=== PATIENT | male | born 1965 | race Caucasian/White ===

== ENCOUNTER 2021-12-08 10:48 | Outpatient (CLI) | payer OTHER, SELFPAY ==
--- NOTE | 2021-12-08 11:02 | USCV_ITS ---
Michael Cowan Age: 56 Gender: M : 1965 Exam Date: 12/08/2021 11:12 Ordering Phys: Luisito Navarro Technologist: MARS Exam Location: [facility]_ Indication: RLE PAIN AND SWELLING WITH PALPABLE LUMP HISTORY: Lower extremity swelling. Lower extremity pain. PROCEDURES: Venous duplex imaging was performed in only the right lower extremity. The following venous structures were evaluated: common femoral vein, profunda vein, proximal portion of the greater saphenous vein, superficial femoral vein, and the popliteal vein. In addition, the posterior tibial and peroneal trunk were evaluated. Serial compression, augmentation maneuvers, and spectral Doppler flow evaluation were performed. FINDINGS: Normal 2-D Doppler and augmentation and compressibility throughout the lower extremity venous structures. Additional imaging through the proximal calf veins also reveals no thrombus. Limited evaluation of the greater saphenous vein is patent with no thrombus. There is subcutaneous right lower extremity edema noted. Possible Lipoma seen measuring 2.1x2.5x0.9 cm at the palpable nodule site. CONCLUSIONS No DVT right lower extremity. Dr. Maeve Rodriguez DO (Electronically Signed) Final Date: 08 December 2021 12:29 S
== END 2021-12-08 10:49 | disposition home or self-care (01) ==
PROVIDERS: Visit Provider Nurse Practitioner Family
DX: M79.89 Other specified soft tissue disorders (principal); M79.661 Pain in right lower leg; R22.41 Localized swelling, mass and lump, right lower limb
CPT/HCPCS: 93971

== ENCOUNTER 2022-10-05 12:56 | Outpatient (CLI) | payer OTHER, SELFPAY ==
--- NOTE | 2022-10-05 14:15 | USCV_ITS ---
Chapo Michael Age: 57 Gender: M : 1965 Exam Date: 10/05/2022 13:37 Ordering Phys: Eb Parham MD (Andy) ([email or web address]) Technologist: CHERRIE [place] [facility] [place]: H[place]ORY: PROCEDURES: FINDINGS: The veins were found to be easily compressible with spontaneous blood flow. Non pulsatile flow pattern. Normal venous dimensions bilaterally. No significant venous reflux CONCLUSIONS No evidence of DVT in the above-mentioned identifiable veins. No significant venous reflux in the above-mentioned veins Normal venous dimensions with no evidence of any superficial vein thrombosis Dr Mackenzie Goldsmith MD FACC (Electronically Signed) Final Date: 05 October 2022 20:33 S
== END 2022-10-05 12:57 | disposition home or self-care (01) ==
PROVIDERS: PCP Nurse Practitioner Family; Visit Provider Thoracic Surgery (Cardiothoracic Vascular Surgery)
DX: M79.89 Other specified soft tissue disorders (principal)
CPT/HCPCS: 93970

== ENCOUNTER 2022-10-26 07:21 | Outpatient (CLI) | payer OTHER, SELFPAY ==
--- NOTE | 2022-10-26 08:00 | CT_ITS ---
WS: [id number] CT ANGIOGRAPHY/venography abdomen and pelvis HISTORY: right leg swelling, possible May- Thurner TECHNIQUE: CT venogram is performed during IV injection. 2 phases. Reformation images reviewed. All C T scans at [facility] use at least one of these dose optimization techniques: automated exposu re control; mA and/or kV adjustment per patient size (includes targeted exams where dose is matched t o clinical indication); or iterative reconstruction. CONTRAST: Omnipaque 350; 100 mL IV. DLP: 1176.63 mGy.cm COMPARISON: None available. Lung bases are clear. Small lymph nodes in the pericardiac fat. Normal size heart. Normal size distal esophagus. There are diffuse, too small to characterize hypodensities within the liver. These are mo st likely small cysts. No mass. Normal portal vein. Normal size spleen. Normal pancreas. No pancreati c duct dilatation. Negative gallbladder and adrenal glands. Abdominal aorta: Normal appearance of the abdominal aorta. Mesenteric arteries are well visualized. N o aneurysm. There is a very tiny amount of plaque in the bifurcation. Normal renal arteries. Normal appearance of the IVC. No thrombus identified. There is good demonstration of the LEFT iliac v ein. There is good contrast enhancement and no thrombus is identified. There is very slight arterial contact on the bifurcation of the IVC. There is a very high bifurcation of the RIGHT common iliac art luis. The LEFT internal iliac artery is causing mild contact at the bifurcation of the IVC/proximal LE FT iliac vein. No thrombus is identified. 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 No associated mass. Only few very small lymph nodes are identi fied. There is fecalization in the distal small bowel along with foreign body like material. Adjacent to the foreign body like material is fecalization of the small bowel which is typically seen with a longstanding chronic obstruction. High density foreign body measures 2.4 x 0.6 cm. At this time there is no obvious small bowel obstruction. No evidence for appendicitis. Additional increased fecal cont ent near the cecum making the cecum difficult to evaluate. Mild bladder wall thickening. Minimal prostate gland hypertrophy. No adenopathy. IMPRESSION: 1. No common iliac vein thrombosis. There is no venous or arterial obstruction. 2. Very early bifurcation of the RIGHT common iliac artery with the external iliac artery contacting but not significantly compressing the proximal LEFT common iliac vein. 3. Abnormal loop of small bowel in the pelvis. There is fecalization of the small bowel loop with ret ained foreign body material. High dense object, linear within the lumen of the small bowel with adjac ent fecalization which is often seen with longstanding obstruction. At this time there is no obstruct ion but patient should be evaluated by surgery. Depending on the foreign body this could be a risk fo r perforation. Follow-up CT imaging may be of benefit to see if this foreign body moves distally. Con supervisor fertilizer surgical evaluation. 4. Hepatic cysts.
[2022-10-26] MEDS: iohexol 350 mg/mL 500 mL Btl (per mL) IV (08:26)
== END 2022-10-26 07:22 | disposition home or self-care (01) ==
PROVIDERS: PCP Nurse Practitioner Family; Visit Provider Thoracic Surgery (Cardiothoracic Vascular Surgery)
DX: M79.89 Other specified soft tissue disorders (principal); T18.3XXA Foreign body in small intestine, initial encounter; K76.89 Other specified diseases of liver
CPT/HCPCS: 74174; Q9967

== ENCOUNTER 2022-12-20 07:27 | Day surgery (SDC) | payer OTHER, SELFPAY ==
[2022-12-20 07:40] VITALS: BP 123/84; PULSE 84; RESP 18; TEMP 36.1; O2SAT 98; BMI 29.5
[2022-12-20] MEDS: sodium chloride 0.9% 1,000 ML 30 ML IV (07:54)
--- NOTE | 2022-12-20 09:01 | ANES.PREANE2 ---
Pre-Anesthetic Assessment Height/Weight: Height 1.75 m Weight 90.718 kg Temp Pulse Resp BP Pulse Ox O2 Del Method 97 F L 84 18 123/84 98 Room Air 12/20/22 07:40 12/20/22 07:40 12/20/22 07:40 12/20/22 07:40 12/20/22 07:40 12/20/22 07:40 Preop Diagnosis: Abd pain,screening Operation Date: 12/20/22 09:00 Proposed Procedures p EGD(Not Applicable) [place] [id number] egd [id number] colon G0121 screen colon A risk R10.9,Z80.0,Z12.11(Not Applicable) - Moris Lowery DO Was Beta Gaby taken within 24 hours: N/A Was Clonidine taken within 24 hours: N/A Last intake: Intake Last Liquid Date 12/19/22 Last Liquid Time 22:00 Last Solid Date 12/18/22 Last Solid Time 22:00 Social Alcohol Exam alert, oriented x 3, clear to auscultation bilaterally and regular rate & rhythm Airway Submandibular: within normal limits Cervical ROM: within normal limits Mallampati: Class II Dentition: false History/ROS No significant history except as noted and No significant complaints Pulmonary None reported CV/HEM None reported None reported Hepatic None reported GI Gastroesophageal Reflux Disease Metabolic None reported Musc/skel None reported Neuropsych None reported Anesthetic Plan ASA status: 2 Anesthesia: Anesthesia Evaluation and MAC Risk of > 500 ml blood loss (7ml/kg in children): No Medications/Allergies Home Medications Medication Instructions Recorded Confirmed Last Taken Type aspirin 325 mg tablet 325 mg PO DAILY PRN Pain 12/19/22 12/19/22 12/06/22 History Allergies Allergy/AdvReac Type Severity Reaction Status Date / Time No Known Allergies Allergy Verified 12/19/22 08:08 Current Medications Generic Name Dose Route Start Last Admin Trade Name Freq PRN Reason Stop Dose Admin Sodium Chloride 1,000 mls @ 30 mls/hr 12/20/22 07:45 12/20/22 07:54 Sodium Chloride 0.9% IV 12/21/22 07:44 30 mls/hr .Q24H KAYKAY Administration PFSH Anesthesia Medical History (Updated 11/28/22 @ 14:22 by Moris Lowery DO) Family history of colon cancer Family History Father Cancer Brother Diabetes Sister Diabetes Denies family history of CAD (coronary artery disease) Stroke Social History Smoking and tobacco/nicotine status: current every day tobacco/nicotine user smokeless tobacco Smokeless tobacco user: chewing tobacco Alcohol intake: current Alcohol intake frequency: 0-2 Drinks per Day Substance/Drug Use: never Lives independently: Yes Household members: none Housing: House Marital status: Single Number of children: 0 Pets and animals: Yes Pets & animals: cat(s) Data Anesthesia Cardiac Studies: No Data to Display
--- NOTE | 2022-12-20 09:24 | W.PM.OPSUD ---
Surgery/Procedure H&P Update DATE OF PROCEDURE: December 20, 2022 DATE H&P PERFORMED: 11/28/22 H&P UPDATE INFORMATION: I have reviewed H&P completed within last 30 days, I have examined patient prior to procedure and No changes to prior documentation PREOP DIAGNOSIS: Abd pain,screening PLANNED PROCEDURE: Operation Date: 12/20/22 09:00 Proposed Procedures p EGD(Not Applicable) - [place] [id number] egd [id number] colon G0121 screen colon A risk R10.9,Z80.0,Z12.11(Not Applicable) - Moris Lowery DO
[2022-12-20 10:13] VITALS: BP 109/73; PULSE 68; RESP 20; TEMP 36.1; O2SAT 99
[2022-12-20 10:23] VITALS: BP 112/75; PULSE 61; RESP 16; O2SAT 97
[2022-12-20 10:31] VITALS: BP 133/98; PULSE 69; RESP 16; O2SAT 100
--- NOTE | 2022-12-20 10:37 | ANE.PACU2 ---
Inpatient post-anesthesia follow up: Airway intact: Yes Vital signs: Temperature 97.0 F Pulse Rate 69 Respiratory Rate 16 Blood Pressure 133/98 Pulse Oximetry 100 Oxygen Delivery Me thod Room Air Oxygen Flow Rate 2 Fraction of Inspir ed Oxygen Hydration adequate: Yes Nausea and vomiting: No Pain level: 1 Mental status: Baseline
== END 2022-12-20 10:49 | disposition home or self-care (01) ==
PROVIDERS: PCP Nurse Practitioner Family; Visit Provider Surgery
PROC: 0DJ08ZZ Inspection of Upper Intestinal Tract, Via Natural or Artificial Opening Endoscopic (ICD-10-PCS; CPT 43235; principal; 2022-12-20 09:00)
PROC: 0DJD8ZZ Inspection of Lower Intestinal Tract, Via Natural or Artificial Opening Endoscopic (ICD-10-PCS; CPT 45378; 2022-12-20 09:00)
DX: Z12.11 Encounter for screening for malignant neoplasm of colon (principal); R10.9 Unspecified abdominal pain; Z80.0 Family history of malignant neoplasm of digestive organs; K29.70 Gastritis, unspecified, without bleeding; B96.81 Helicobacter pylori [H. pylori] as the cause of diseases classified elsewhere; D12.2 Benign neoplasm of ascending colon; D12.5 Benign neoplasm of sigmoid colon; D12.3 Benign neoplasm of transverse colon; K21.9 Gastro-esophageal reflux disease without esophagitis; F17.290 Nicotine dependence, other tobacco product, uncomplicated
CPT/HCPCS: 43239; 45385; 88305; 88342; J2704; J7030

== ENCOUNTER 2022-12-28 13:51 | Outpatient (CLI) | payer OTHER, SELFPAY ==
[2022-12-28] MEDS: iohexol 350 mg/mL 500 mL Btl (per mL) IV (14:19)
--- NOTE | 2022-12-28 14:30 | CTR_ITS ---
PROCEDURE INFORMATION: Exam: CT Abdomen And Pelvis With Contrast Exam date and time: 12/28/2022 2:18 PM Age: 57 years old Clinical indication: Abdominal pain; Localized; Left lower quadrant (llq); Prior surgery; Surgery date: 6+ months; Surgery type: Testicle TECHNIQUE: Imaging protocol: Computed tomography of the abdomen and pelvis with contrast. Radiation optimization: All CT scans at this facility use at least one of these dose optimization techniques: automated exposure control; mA and/or kV adjustment per patient size (includes targeted exams where dose is matched to clinical indication); or iterative reconstruction. Contrast material: OMNI 350; Contrast volume: 100 ml; Contrast route: INTRAVENOUS (IV); REPORTING DATA: Count of CT and Cardiac NM exams in prior 12 months: This patient has received [address] and 0 known cardiac nuclear medicine studies in the 12 months prior to the current study. COMPARISON: CT angio abdomen pelvis [id number] 10/26/2022 8:20 AM RADIATION DOSE METRICS: Total DLP (mGy-cm): 477.82 FINDINGS: Liver: Several small cystic lesions in the liver which do not warrant further evaluation. Gallbladder and bile ducts: Normal. No calcified stones. No ductal dilation. Pancreas: Normal. No ductal dilation. Spleen: Normal. No splenomegaly. Adrenal glands: Normal. No mass. Kidneys and ureters: Simple cyst lower pole right kidney which does not warrant further evaluation. Tiny simple cyst upper pole left kidney which does not warrant further evaluation. Stomach and bowel: Once again there is an abnormal loop of small bowel in the pelvis with internal retained foreign body material but no definite obstruction. Stomach is distended with a large amount of particulate material but no definite mechanical outflow obstruction seen. Appendix: No evidence of appendicitis. Intraperitoneal space: See Lymph nodes finding. Vasculature: Unremarkable. No abdominal aortic aneurysm. Lymph nodes: Mild nonspecific enlargement mesenteric nodes seen as on the prior study. This has not increased. There is a small amount of commensurate increased attenuation of mesenteric fat this is also stable. Urinary bladder: Unremarkable as visualized. Reproductive: Unremarkable as visualized. Bones/joints: Lower lumbar degenerative changes without stenosis. Soft tissues: Unremarkable. CT/CT abdomen pelvis w con* [id number] IMPRESSION: Findings are similar to those seen on CT angio from 10/26/2022. Focally dilated small bowel with internal foreign body without gross obstruction. Minor prominence of mesenteric nodes and adjacent increased attenuation mesenteric fat, nonspecific. Large amount retained particulate material within distended stomach without definite mechanical obstruction.
== END 2022-12-28 13:52 | disposition home or self-care (01) ==
LOC: RAD 13:52
PROVIDERS: PCP Nurse Practitioner Family; Visit Provider Surgery
DX: R10.9 Unspecified abdominal pain (principal); T18.3XXA Foreign body in small intestine, initial encounter
CPT/HCPCS: 74177; Q9967

== ENCOUNTER → 2023-06-06 08:31 | Outpatient (BNVA) | payer OTHER, SELFPAY | PROVIDERS: PCP Nurse Practitioner Family; Referring Provider Nurse Practitioner; Visit Provider Orthopaedic Surgery | DX: M54.9 Dorsalgia, unspecified (principal) | CPT/HCPCS: 72110 ==